=== PATIENT | male | born 1995 | race Caucasian/White ===

== ENCOUNTER 2017-06-02 16:40 | Emergency (ER) | payer OTHER ==
[~2017-06-02] VITALS: Ht 172.7 cm; Wt 90.0 kg
[2017-06-02 16:45] VITALS: BP 128/60; TEMP 99.3
[2017-06-02] MEDS ORDERED: MOTRIN 800800 MG/TAB PO (17:56)
[2017-06-02 18:14] VITALS: PULSE 60
== END 2017-06-02 18:16 | disposition home or self-care (01) ==
LOC: COL.ER 16:40
DX: S59.911A Unspecified injury of right forearm, initial encounter (principal); S50.11XA Contusion of right forearm, initial encounter; F17.210 Nicotine dependence, cigarettes, uncomplicated; W22.8XXA Striking against or struck by other objects, initial encounter; Y92.69 Other specified industrial and construction area as the place of occurrence of the external cause